=== PATIENT | female | born 1950 | race Caucasian/White ===

== ENCOUNTER 2018-10-05 21:51 | Emergency (ER) | payer OTHER, MEDICARE, SELFPAY ==
--- NOTE | 2018-10-05 21:55 | ED.ABDPAIN ---
HPI - Abdominal Pain General Chief Complaint: Chest Pain Stated Complaint: thinks she is having a galbladder attack Time Seen by Provider: 10/05/18 21:54 Source: patient Mode of arrival: ambulatory Limitations: no limitations History of Present Illness HPI narrative: Patient is a 68-year-old female here for evaluation of right upper quadrant abdominal pain. She states that it is radiating to the right side of her back. She is also having severe nausea. States it was a fairly sudden onset this afternoon. Does not seem to be associated with any other symptoms. She came in stating that she thought it was her gallbladder. No bowel changes. No symptoms. Has had a gastric banding in the past. Related Data Previous Rx's Medication Instructions Recorded acyclovir 400 mg tablet 400 mg PO TID #30 tab 01/22/18 escitalopram 10 mg tablet 10 mg PO HS #90 tab 07/01/18 levothyroxine 100 mcg tablet 100 mcg PO QAM #90 tab 07/01/18 liothyronine 5 mcg tablet 5 mcg PO QDAY #14 tab 07/31/18 oxycodone-acetaminophen [Percocet] 1 tab PO Q4-6H PRN #14 tab 10/06/18 promethazine 25 mg PO Q4-6H PRN #14 tab 10/06/18 Allergies Allergy/AdvReac Type Severity Reaction Status Date / Time clindamycin [CLINDAMYCIN] Allergy Intermediate FULL BODY Unverified 08/08/17 13:00 RASH morphine [MORPHINE] Allergy Mild severe Unverified 08/08/17 13:00 vomiting and nausea wheat [WHEAT] Allergy Unknown UNKNOWN Unverified 08/08/17 13:00 REACTION PER PT DIARY Allergy Intermediate SINUS Uncoded 08/08/17 13:00 DRAINAGE, GI UPSET Review of Systems Constitutional Denies fever(s) and Denies headache(s) ENT Ears, Nose, Mouth, and Throat: Denies headache(s) Cardiovascular Denies chest pain and Denies dyspnea Respiratory Denies dyspnea Gastrointestinal Gastrointestinal: Reports abdominal pain, Denies change in stool character, Reports nausea and Reports vomiting Genitourinary Denies dysuria Musculoskeletal Denies myalgias and Denies arthralgias Integumentary/Breasts Denies rash Neurologic Denies headache(s) Hematologic/Lymphatic Denies easy bleeding and Denies easy bruising Allergic/Immunologic Denies urticaria [facility] Medical History Excessive daytime sleepiness (Chronic) Insomnia, persistent (Chronic) Obstructive sleep apnea of adult (Chronic) Social History Smoking Status: Never smoker Social History Smoking Status: Never smoker Exam Initial Vital Signs Initial Vital Signs: Vital Signs Pulse Rate 72 10/05/18 21:57 Respiratory Rate 17 10/05/18 21:57 Blood Pressure 154/128 H 10/05/18 21:57 Pulse Oximetry 100 10/05/18 21:57 Const General: cooperative, No comfortable (Uncomfortable), well developed and well groomed Orientation: alert, awake and oriented x3 HENMT Head: normal to inspection and normocephalic Resp Effort & Inspection: normal respiratory effort Auscultation: clear to auscultation bilaterally Cardio Rate: regular rate Rhythm: regular rhythm GI Inspection: non-distended Palpation: tender (Right upper quadrant positive Pierson sign) Back/Spine/Pelvis Back: CVA tenderness right Skin Lesions: no lesions Rashes: no rashes Neuro General: alert and awake Cognition: normal cognition Speech: speech normal Extrem General: normal to inspection and capillary refill normal Psych Appearance: grossly normal and well kempt Course Orders Ordered: ED Orders 10/05/18 22:05 Complete Blood Count AUTO DIFF Stat Comprehensive Metabolic Panel Stat Lipase Stat Troponin & CK Cardiac Panel Stat EKG-12 Lead Stat 10/05/18 22:08 US abdomen limited Stat 10/05/18 22:56 Lactate (Lactic Acid) Stat 10/05/18 23:19 CT abdomen pelvis w con Stat Discontinued Medications Fentanyl (Sublimaze) 50 mcg IV NOW ONE Stop: 10/05/18 23:20 Last Admin: 10/06/18 00:14 Dose: 50 mcg Hydroxyzine HCl (Vistaril) 25 mg IM NOW ONE Stop: 10/05/18 22:23 Last Admin: 10/05/18 22:29 Dose: 25 mg Ketorolac Tromethamine (Toradol) 30 mg IV NOW ONE Stop: 10/06/18 02:00 Last Admin: 10/06/18 02:22 Dose: 30 mg Lorazepam (Ativan) 1 mg IV NOW ONE Stop: 10/06/18 00:31 Last Admin: 10/06/18 00:37 Dose: 1 mg Metoclopramide HCl (Reglan) 10 mg IV NOW ONE Stop: 10/05/18 22:12 Last Admin: 10/05/18 22:17 Dose: 10 mg Ondansetron HCl (Zofran) 4 mg IV NOW ONE Stop: 10/05/18 22:08 Last Admin: 10/06/18 01:04 Dose: Not Given Ondansetron HCl (Zofran Odt Prepack) 1 bottle MISC SEEINSTR ONE Stop: 10/06/18 02:51 Oxycodone/Acetaminophen (Percocet 5/325) 2 tab PO NOW ONE Stop: 10/06/18 02:03 Last Admin: 10/06/18 02:23 Dose: 2 tab Oxycodone/Acetaminophen (Endocet 5/325 Prepack) 1 bottle MISC SEEINSTR ONE Stop: 10/06/18 02:51 Vital Signs - 8 hr 10/05/18 21:57 10/05/18 22:25 10/05/18 22:52 Temperature 97.0 F L Pulse Rate 72 76 Respiratory Rate 17 16 Blood Pressure 154/128 H Blood Pressure [Right Arm] 145/97 H Pulse Oximetry 100 99 10/06/18 00:21 10/06/18 00:57 10/06/18 01:54 Temperature Pulse Rate 67 74 65 Respiratory Rate 18 12 14 Blood Pressure Blood Pressure [Right Arm] 150/75 H 143/71 H 123/61 Pulse Oximetry 97 97 MDM - Abdominal Pain Lab Data Attestation: I reviewed the patient's lab results. Result diagrams: 10/05/18 22:05 10/05/18 22:05 Lab Results 10/05/18 10/05/18 10/05/18 Range/Units 22:05 22:05 22:05 WBC 10.0 (4.5-11.0) X10^3/uL RBC 4.37 (4.0-5.2) X10^6/uL Hgb 14.6 (12.0-16.0) g/dL Hct 42.0 (36-46) % MCV 96.0 (80-100) fL MCH 33.4 (26-34) PG MCHC 34.7 (30-36) % RDW 13.7 (11.6-14.8) % Plt Count 271 (150-400) X10^3/uL Neut % (Auto) 47.1 L (50-75) % Lymph % (Auto) 44.0 H (25-40) % [place] % (Auto) 6.6 (3-14) % Eos % (Auto) 1.3 L (2-4) % Baso % (Auto) 1.0 (0-2) % Neut # (Auto) 4700 (5186-4609) /uL Lymph # (Auto) 4400 (0560-8286) /uL [place] # (Auto) 700 (0-900) /uL Eos # (Auto) 100 (0-450) /uL Baso # (Auto) 100 (0-100) /uL Sodium 140 (137-145) mmol/L Potassium 4.2 (3.4-5.1) mmol/L Chloride 102 (98-107) mmol/L Carbon Dioxide 29 (22-32) mmol/L BUN 22 H (7-17) mg/dL Creatinine 0.90 (0.52-1.04) mg/dL Estimated GFR > 60.0 (>60) mL/min BUN/Creatinine Ratio 24.4 H (6-22) Glucose 109 (80-110) mg/dL Lactate (0.7-2.1) mmol/L Calcium 9.7 (8.4-10.2) mg/dL Total Bilirubin 0.4 (0.2-1.3) mg/dL AST 38 H (14-36) IU/L ALT 28 (9-52) IU/L Alkaline Phosphatase 64 (38-126) U/L Total Creatine Kinase 95 (30-135) U/L CK-MB (CK-2) TNP CK-MB (CK-2) Rel Index TNP Troponin I < 0.012 (0.01-0.034) ng/mL Total Protein 7.9 (6.3-8.2) g/dL Albumin 4.5 (3.5-5.0) g/dL Globulin 3.4 (1.7-4.1) g/dL Albumin/Globulin Ratio 1.3 (1.0-2.8) Lipase 109 (23-300) U/L 10/05/18 Range/Units 22:56 WBC (4.5-11.0) X10^3/uL RBC (4.0-5.2) X10^6/uL Hgb (12.0-16.0) g/dL Hct (36-46) % MCV (80-100) fL MCH (26-34) PG MCHC (30-36) % RDW (11.6-14.8) % Plt Count (150-400) X10^3/uL Neut % (Auto) (50-75) % Lymph % (Auto) (25-40) % [place] % (Auto) (3-14) % Eos % (Auto) (2-4) % Baso % (Auto) (0-2) % Neut # (Auto) (6673-1194) /uL Lymph # (Auto) (2058-9303) /uL [place] # (Auto) (0-900) /uL Eos # (Auto) (0-450) /uL Baso # (Auto) (0-100) /uL Sodium (137-145) mmol/L Potassium (3.4-5.1) mmol/L Chloride (98-107) mmol/L Carbon Dioxide (22-32) mmol/L BUN (7-17) mg/dL Creatinine (0.52-1.04) mg/dL Estimated GFR (>60) mL/min BUN/Creatinine Ratio (6-22) Glucose (80-110) mg/dL Lactate 1.3 (0.7-2.1) mmol/L Calcium (8.4-10.2) mg/dL Total Bilirubin (0.2-1.3) mg/dL AST (14-36) IU/L ALT (9-52) IU/L Alkaline Phosphatase (38-126) U/L Total Creatine Kinase (30-135) U/L CK-MB (CK-2) CK-MB (CK-2) Rel Index Troponin I (0.01-0.034) ng/mL Total Protein (6.3-8.2) g/dL Albumin (3.5-5.0) g/dL Globulin (1.7-4.1) g/dL Albumin/Globulin Ratio (1.0-2.8) Lipase (23-300) U/L Imaging Data US - abdomen: Radiologist's impression: Distended gallbladder with cholelithiasis. Mild hepatomegaly. Patient stop the exam before images of the right kidney could be obtained. Common bile duct 7.9 mm. No gallbladder wall thickening. Distended gallbladder measuring [address] scan - abdomen: Radiologist's impression: Considerably distended gallbladder without other abnormalities. ECG Data Attestation: I personally reviewed and interpreted this ECG as follows: Prior ECG tracings: not available for review Interpretation: Atrial fibrillation Ventricular rate of 77 Left axis deviation Normal QRS Normal QTC No ST T wave changes MDM Narrative Medical decision making narrative: Had fairly difficult time getting the patient's symptoms under control here in the ER. She states that the only medication that works for her nausea is Phenergan which we do not have available in the emergency department due to pharmacy restrictions. She also has allergies to morphine. She states that morphine makes her severely nauseous and causes vomiting which she is currently doing. She thinks that Dilaudid also causes this. We were able to obtain some control of her symptoms through other medications. She was able to tolerate oral pain medications. Will send home with prescriptions for these. I do have a high suspicion that her symptoms are related to her gallbladder. The manometer technician reported that there was 1 non moveable gallstone in the neck of the gallbladder. Her CT scan of the abdomen shows no other pathology. I did discuss the case with Dr. Odell with General surgery who stated that given her history of gastric banding that treating this as an outpatient would be preferable to admitting her and taking her to surgery. We were able to do this. Patient was given the phone number to follow up with surgery as an outpatient. She was given return precautions. She expressed understanding and agreement with plan. Discharge Plan Departure Patient Disposition: Home Clinical Impression: Biliary colic Instructions: Gallstones (Alternative Therapy), Gallstones Activity Restrictions/Additional Instructions: Take the medications as directed. I do recommend that you avoid greasy and oily foods for now. This may decrease your chances of having a repeat issue. On Sunday contact the [place] [facility] office at [phone]. Also contact your primary care provider for a follow-up. Return to the emergency department for any new or worsening symptoms Prescriptions: New oxycodone-acetaminophen [Percocet] 5-325 mg tablet 1 tab PO Q4-6H PRN (Reason: pain) Qty: 14 RF: 0 promethazine 25 mg tablet 25 mg PO Q4-6H PRN (Reason: nausea and vomiting) Qty: 14 RF: 0 No Action acyclovir 400 mg tablet 400 mg PO TID Qty: 30 RF: 5 escitalopram oxalate [Lexapro] 10 mg tablet 10 mg PO HS Qty: 90 RF: 1 levothyroxine [Synthroid] 100 mcg tablet 100 mcg PO QAM Qty: 90 RF: 0 liothyronine [Cytomel] 5 mcg tablet 5 mcg PO QDAY Qty: 14 RF: 0 Referrals: Chaz Amezcua MD [Primary Care Provider] -
[2018-10-05 21:57] VITALS: BP 154/128; PULSE 72; RESP 17; O2SAT 100; BMI 34.9
--- NOTE | 2018-10-05 22:08 | DI.US.S_ITS ---
PROCEDURE: US ABDOMEN LIMITED INDICATIONS: RIGHT UPPER QUADRANT PAIN; NAUSEA, VOMITING TECHNIQUE: Real-time focused scanning was performed of the abdomen, with image documentation. COMPARISON: [facility], US, RENAL COMPLETE, 02/04/2016, 8:40. [facility], CT, ABDOMEN/PELVIS WITH CONTRAST, 12/27/2015, 0:51. [facility], CT, CT ABDOMEN PELVIS W CON, 10/06/2018, 0:33. FINDINGS: A non-mobile gallstone is seen within the gallbladder that measures 2.7 cm. Additional smaller mobile gallstones are seen that measure approximately 2 cm. The gallbladder is distended. The gall bladder wall is not thickened. No pericholecystic fluid is seen. There is a positive sonographic Pierson sign. The common hepatic duct is mildly prominent at 8 mm. Limit evaluation of the liver and pancreas are unremarkable. IMPRESSION: Gallstones with a positive sonographic Pierson's sign. No additional sonographic signs of cholecystitis are seen. Please correlate with physical examination findings, patient presentation, and laboratory values. Note: No significant discrepancy from the preliminary report. Dictated by: Gene Juarez M.D. on 10/06/2018 at 8:21 Approved by: Gene Juarez M.D. on 10/06/2018 at 8:24
[2018-10-05] MEDS: METOCLOPRAMIDE 10 MG/2 ML INJ IV (22:17)
[2018-10-05 22:21] LABS: Add Manual Diff / Slide Review NO; Alanine Aminotransferase 28 IU/L (9-52); Albumin 4.5 g/dL (3.5-5.0); Albumin Globulin Ratio 1.3 (1.0-2.8); Alkaline Phosphatase 64 U/L (38-126); Aspartate Aminotransferase 38 IU/L (14-36); BUN Creatinine Ratio 24.4 (6-22); Basophils Absolute Auto 100 /uL (0-100); Bilirubin Total 0.4 mg/dL (0.2-1.3); Blood Urea Nitrogen 22 mg/dL (7-17); Calcium 9.7 mg/dL (8.4-10.2); Carbon Dioxide 29 mmol/L (22-32); Chloride 102 mmol/L (98-107); Creatine Kinase 95 U/L (30-135); Eosinophils Absolute Auto 100 /uL (0-450); Eosinophils Percent Auto 1.3 % (2-4); Estimated Glomerular Filt Rate > 60.0 mL/min (>60); Globulin 3.4 g/dL (1.7-4.1); Glucose 109 mg/dL (80-110); HEMOLYSIS < 15 (0-50); Hemoglobin 14.6 g/dL (12.0-16.0); Lipase 109 U/L (23-300); Lymphocytes Absolute Auto 4400 /uL (1100-4500); Mean Corpuscular HGB Conc 34.7 % (30-36); Mean Corpuscular Hemoglobin 33.4 PG (26-34); Monocytes Absolute Auto 700 /uL (0-900); Monocytes Percent Auto 6.6 % (3-14); Neutrophils Absolute Auto 4700 /uL (1500-7000); Neutrophils Percent Auto 47.1 % (50-75); Platelet Count 271 X10^3/uL (150-400); Potassium 4.2 mmol/L (3.4-5.1); Red Blood Cell Count 4.37 X10^6/uL (4.0-5.2); Red Cell Distribution Width 13.7 % (11.6-14.8); Sodium 140 mmol/L (137-145); Total Protein 7.9 g/dL (6.3-8.2)
[2018-10-05 22:25] VITALS: BP 145/97; PULSE 76; RESP 16; O2SAT 99
[2018-10-05] MEDS: hydrOXYzine 50 MG/ML INJ 25 MG IM (22:29)
[2018-10-05 22:33] LABS: Troponin I < 0.012 ng/mL (0.01-0.034)
[2018-10-05 22:52] VITALS: TEMP 36.1
[2018-10-05 23:09] LABS: Lactate (Lactic Acid) 1.3 mmol/L (0.7-2.1)
--- NOTE | 2018-10-05 23:19 | DI.CT.S_ITS ---
PROCEDURE: CT ABDOMEN PELVIS W CON INDICATIONS: Right-sided abdominal pain TECHNIQUE: After the administration of intravenous contrast, 5 mm thick sections acquired from the diaphragm to the symphysis. 5 mm coronal and sagittal reformats were acquired. For radiation dose reduction, the following was used: automated exposure control, adjustment of mA and/or kV according to patient size. COMPARISON: [facility], US, US ABDOMEN LIMITED, 10/05/2018, 22:32. [facility], RG, CT ABDOMEN/PELVIS WITH CONTRAST, 08/26/2004, 14:02. [facility], CT, ABDOMEN/PELVIS WITH CONTRAST, 12/27/2015, 0:51. FINDINGS: Image quality: There is streak artifact associated with the metallic hardware. ABDOMEN: Lung bases: Lung bases are clear. Heart size is normal. A small hiatal hernia is incidentally noted. Solid organs: Liver is normal in size and enhancement. Incidental note is made of focal fatty infiltration adjacent to the falciform ligament, which is not regarded to be pathologic. The gallbladder is distended. There is a faintly seen stone within the midportion of the gallbladder. Biliary system is non dilated. Pancreas enhances normally. Spleen is normal in size and enhancement. No adrenal nodules. Kidneys demonstrate normal size and enhancement, without hydronephrosis. A simple appearing cyst measuring greater than 5 cm is again seen involving the right kidney. Peritoneum and bowel: There is a lap band seen. Bowel loops demonstrate normal wall thickness and caliber. No free fluid or air. Diverticulosis is seen, without findings of active diverticulitis. No appendix (either normal or abnormal) is identified on this study. Nodes and vessels: No retroperitoneal or mesenteric adenopathy by size criteria. Aorta and inferior vena cava are normal in size. Miscellaneous: No ventral hernias. PELVIS: Genitourinary: Bladder wall thickness is normal. Small presumed uterine fibroids are seen. Miscellaneous: No inguinal hernias or adenopathy. Bones: No suspicious bony lesions. No vertebral body compression fractures. There is a left hip arthroplasty seen, with associated streak artifact. Degenerative changes are seen throughout, which are most prominent at L5-S1. IMPRESSION: Distended gallbladder, with a faintly seen gallstone within its lumen. No biliary dilatation. No appendix can be seen, either normal or abnormal. Incidental note is made of: Small hiatal hernia Left hand Large simple right renal cyst Diverticulosis is seen, without findings of active diverticulitis. Small presumed uterine fibroids Focal L5-S1 degenerative change Left hip arthroplasty, with associated streak artifact Note: No significant discrepancy from the preliminary report. Dictated by: Gene Juarez M.D. on 10/06/2018 at 8:03 Approved by: Gene Juarez M.D. on 10/06/2018 at 8:08
[2018-10-06] MEDS: fentaNYL 100 MCG/2 ML INJ 50 MCG IV (00:14)
[2018-10-06 00:21] VITALS: BP 150/75; PULSE 67; RESP 18; O2SAT 97
--- NOTE | 2018-10-06 00:23 | PC.NURSE ---
Pt reports pain 8/10, unable to lie flat for CT. Pt agreed to try Fentanyl, pt medicated per order. Will monitor for effect.
[2018-10-06] MEDS: LORazepam 2 MG/ML INJ 1 MG IV (00:37)
--- NOTE | 2018-10-06 00:41 | PC.NURSE ---
After Fentanly, pt was able to lie flat for a moment, but then sat up reporting increasing pain and nausea. Pt stated she's unable to lie flat for CT scan. Dr Setphens notified, order receieved for 1 mg ativan IV. Med given, pt now to CT scan.
[2018-10-06 00:57] VITALS: BP 143/71; PULSE 74; RESP 12; O2SAT 97
[2018-10-06 01:54] VITALS: BP 123/61; PULSE 65; RESP 14
[2018-10-06] MEDS: KETOROLAC 60 MG/2 ML VIAL 30 MG IV (02:22)
[2018-10-06] MEDS: OXYCODONE/ACETAMINOPHEN 5/325 TABLET 2 TAB PO (02:23)
[2018-10-06] MEDS: OXYCODONE/APAP 5/325 PREPACK 1 BOTTLE MISC (03:33)
[2018-10-06] MEDS: ONDANSETRON 4 MG ODT PREPACK 1 BOTTLE MISC (03:33)
[2018-10-06 03:44] VITALS: BP 116/57; PULSE 70; RESP 13; TEMP 36.5; O2SAT 99
== END 2018-10-06 03:45 | disposition home or self-care (01) ==
PROVIDERS: Emergency Provider Emergency Medicine; Family Provider Family Medicine; PCP Family Medicine
DX: K80.50 Calculus of bile duct without cholangitis or cholecystitis without obstruction (principal); I48.91 Unspecified atrial fibrillation
CPT/HCPCS: 36591; 74177; 76705; 80053; 82550; 83605; 83690; 84484; 85025; 93005; 96372; 96374; 96375; 99283; 99285; J1885; J2060; J2765; J3010; J3410; Q9967

== ENCOUNTER → 2018-10-10 11:45 | Outpatient (CLI) | payer OTHER, MEDICARE, SELFPAY ==
[2018-10-10 12:11] LABS: Add Manual Diff / Slide Review NO; Basophils Absolute Auto 100 /uL (0-100); Eosinophils Absolute Auto 100 /uL (0-450); Eosinophils Percent Auto 1.7 % (2-4); Hematocrit 42.1 % (36-46); Hemoglobin 14.5 g/dL (12.0-16.0); Lymphocytes Absolute Auto 1700 /uL (1100-4500); Lymphocytes Percent Auto 35.1 % (25-40); Mean Corpuscular HGB Conc 34.5 % (30-36); Mean Corpuscular Hemoglobin 32.9 PG (26-34); Mean Corpuscular Volume 95.4 fL (80-100); Monocytes Absolute Auto 400 /uL (0-900); Neutrophils Absolute Auto 2600 /uL (1500-7000); Neutrophils Percent Auto 54.2 % (50-75); Platelet Count 239 X10^3/uL (150-400); Red Blood Cell Count 4.41 X10^6/uL (4.0-5.2); Red Cell Distribution Width 13.8 % (11.6-14.8); White Blood Cell Count 4.8 X10^3/uL (4.5-11.0)
[2018-10-10 12:45] LABS: Alanine Aminotransferase 36 IU/L (9-52); Albumin 4.3 g/dL (3.5-5.0); Albumin Globulin Ratio 1.4 (1.0-2.8); Alkaline Phosphatase 55 U/L (38-126); Aspartate Aminotransferase 37 IU/L (14-36); Bilirubin Total 0.6 mg/dL (0.2-1.3); Blood Urea Nitrogen 6 mg/dL (7-17); Calcium 9.8 mg/dL (8.4-10.2); Carbon Dioxide 29 mmol/L (22-32); Chloride 102 mmol/L (98-107); Estimated Glomerular Filt Rate > 60.0 mL/min (>60); Glucose 95 mg/dL (80-110); HEMOLYSIS < 15 (0-50); Potassium 4.8 mmol/L (3.4-5.1); Sodium 140 mmol/L (137-145); Total Protein 7.3 g/dL (6.3-8.2)
== END ==
PROVIDERS: Family Provider Family Medicine; PCP Family Medicine; Visit Provider Hospitalist
DX: K80.50 Calculus of bile duct without cholangitis or cholecystitis without obstruction (principal)
CPT/HCPCS: 36415; 80053; 85025

== ENCOUNTER → 2018-10-21 09:02 | Outpatient (CLI) | payer OTHER, MEDICARE, SELFPAY ==
--- NOTE | 2018-10-21 09:06 | DI.RAD.S_ITS ---
PROCEDURE: FL UPPER GI W AIR INDICATIONS: History Lap Band with vomiting COMPARISON: None. 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 Note is made of a gastric lap band device and catheter, and control device at the right upper abdomen and midline of the esophagogastric region. No suspicious abdominal calcifications. Visualized solid organ contours appear normal. Bony structures appear unremarkable. Esophagus: Esophageal mucosa is normal on air-contrast views. On single-contrast views, there is normal esophageal peristalsis. No strictures, extrinsic mass effects, or diverticula. No hiatal hernia or elicited gastroesophageal reflux. There is normal transit of a calibrated barium tablet through the esophagus. Stomach: The stomach is normally distensible, with normal rugal fold thickness. No mucosal masses or ulcers. Pylorus and duodenal bulb appear normal in morphology. Duodenal folds are normal in thickness as well. IMPRESSION: Gastric lap band procedure has been performed, control device and catheter and midline upper esophagogastric region device in expected positions. The examination shows no evidence of reflux, hiatal hernia, or esophagitis. No gastric mass or ulceration is seen. The duodenum appears normal. Dictated by: Kamran Beltran M.D. on 10/21/2018 at 10:07 Approved by: Kamran Beltran M.D. on 10/21/2018 at 10:08
== END ==
PROVIDERS: Family Provider Family Medicine; PCP Family Medicine; Visit Provider Surgery
DX: R11.10 Vomiting, unspecified (principal); Z98.84 Bariatric surgery status
CPT/HCPCS: 74247

== ENCOUNTER → 2018-11-05 12:54 | Outpatient (CLI) | payer OTHER, MEDICARE, SELFPAY ==
[2018-11-05 13:31] LABS: Hematocrit 40.6 % (36-46); Hemoglobin 13.9 g/dL (12.0-16.0); Mean Corpuscular HGB Conc 34.2 % (30-36); Mean Corpuscular Hemoglobin 32.9 PG (26-34); Red Blood Cell Count 4.23 X10^6/uL (4.0-5.2); White Blood Cell Count 6.7 X10^3/uL (4.5-11.0)
[2018-11-05 13:51] LABS: Platelet Count 224 X10^3/uL (150-400)
[2018-11-05 13:54] LABS: Neutrophils Absolute Manual 3551 /uL (3000-5900); Total Cells Counted 100
[2018-11-05 13:55] LABS: RBC Morphology Normal Morphology
[2018-11-05 14:27] LABS: Alanine Aminotransferase 37 IU/L (9-52); Albumin 4.3 g/dL (3.5-5.0); Albumin Globulin Ratio 1.5 (1.0-2.8); Alkaline Phosphatase 51 U/L (38-126); Aspartate Aminotransferase 38 IU/L (14-36); BUN Creatinine Ratio 31.7 (6-22); Bilirubin Total 0.6 mg/dL (0.2-1.3); Blood Urea Nitrogen 19 mg/dL (7-17); Calcium 9.8 mg/dL (8.4-10.2); Carbon Dioxide 26 mmol/L (22-32); Chloride 106 mmol/L (98-107); Estimated Glomerular Filt Rate > 60.0 mL/min (>60); Globulin 2.9 g/dL (1.7-4.1); Glucose 95 mg/dL (80-110); HEMOLYSIS 27 (0-50); Potassium 4.5 mmol/L (3.4-5.1); Sodium 141 mmol/L (137-145); Total Protein 7.2 g/dL (6.3-8.2)
[2018-11-05 14:58] LABS: TSH w/ Reflex to FT4 5.14 uIU/mL (0.47-4.68)
[2018-11-05 15:53] LABS: Free T4, Direct Thyroxine 0.56 ng/dL (0.78-2.19)
== END ==
PROVIDERS: PCP Family Medicine; Visit Provider Family Medicine
DX: I48.91 Unspecified atrial fibrillation (principal)
CPT/HCPCS: 36415; 80053; 84439; 84443; 85025

== ENCOUNTER → 2018-11-12 12:26 | Outpatient (CLI) | payer OTHER, MEDICARE, SELFPAY ==
--- NOTE | 2018-11-12 12:29 | DI.MG.S_ITS ---
BILATERAL DIGITAL SCREENING MAMMOGRAM 3D/2D WITH CAD: 11/12/2018 CLINICAL: Routine screening. Family history of breast cancer. Baseline by default. No prior exams were available for comparison. There are scattered fibroglandular elements in both breasts. Current study was also evaluated with a Computer Aided Detection (CAD) system. There are mole markers on both breasts. No significant masses, calcifications, or other findings are seen in either breast. IMPRESSION: NEGATIVE There is no mammographic evidence of malignancy. A 1 year screening mammogram is recommended. This exam was interpreted at Station ID: [id number]. NOTE: For mammograms, a report in lay terms will be sent to the patient. Approximately 15% of breast malignancies will not be visualized mammographically. In the management of a palpable breast mass, a negative mammogram must not discourage biopsy of a clinically suspicious lesion. Electronically Signed By: Kelvin Reyez M.D. ecl/:11/12/2018 19:43:52 letter sent: Normal Exam ACR BI-RADS Category 1: Negative [id number]
== END ==
PROVIDERS: PCP Family Medicine; Visit Provider Family Medicine
DX: Z12.31 Encounter for screening mammogram for malignant neoplasm of breast (principal); Z80.3 Family history of malignant neoplasm of breast
CPT/HCPCS: 77063; 77067

== ENCOUNTER → 2018-11-13 11:02 | Outpatient (CLI) | payer OTHER, MEDICARE, SELFPAY ==
--- NOTE | 2018-11-29 16:08 | P.HOLT.S_ITS ---
[employer] Report Referral & Results Date Patient Seen: 11/13/18 Requesting provider: Chaz Amezcua Indication: Atrial fibrillation Duration of monitoring (days): 6 Diary information: There were no patient diary entries There were 10 patient triggered events associated sinus rhythm and PACs Data: Minimum are identified was 40 beats per minute at 08:37 on 11/20/2018 Met from sinus heart rate was 120 beats per minute at 14:26 05/06/2018 Maximum overall heart rate is 169 beats per minute at 14:48 on 11/19/2018 associated with a 5 beat run of SVT/atrial tachycardia Less than 1% of identified beats were PVCs Approximately 1.4% of identified beats were PACs No episodes of atrial fibrillation identified 111 runs of supraventricular tachycardia or potentially atrial tachycardia her identified. The longest was 51 seconds in duration with a heart rate of 112 beats per minute (the suggesting atrial tachycardia versus true SVT) Impression: No atrial fibrillation identified Supraventricular dysrhythmia as above
== END ==
PROVIDERS: PCP Family Medicine; Visit Provider Family Medicine
DX: I48.91 Unspecified atrial fibrillation (principal)
CPT/HCPCS: 0296T; 0298T

== ENCOUNTER → 2018-11-18 13:45 | Outpatient (CLI) | payer OTHER, MEDICARE, SELFPAY ==
--- NOTE | 2018-11-18 13:47 | DI.ECHO.S_ITS ---
[facility] +---------+ : : [address] : : : : [id number] : : : : Phone: [phone] Echocardiogram Report + + :Name: LG CRENSHAW Study Date: 11/18/2018 Height: 64 in : :[facility] Exam Location: IS Weight: 200 lb : : Gender: Female BSA: 2.0 m2 : :: 1950 Age: 68 yrs BP: 112/70 mmHg: :Reason For Study: AFIB : : Performed By: Zana Antunez : :Referring: ANA JOHNSON : + + Interpretation Summary Normal left ventricle size with ejection fraction 60-65%. Mildly dilated left atrium. Mild aortic valve sclerosis. Mild aortic regurgitation. Mildly enlarged ascending aorta. Procedure: A two-dimensional transthoracic echocardiogram with color flow and Doppler was performed. The study quality was technically good. There is no prior echocardiogram noted for this patient. The patient was in normal sinus rhythm during the exam. Left Ventricle: The left ventricle is normal in size. There is normal left ventricular wall thickness. The ejection fraction is estimated to be 60-65%. There are no focal wall motion abnormalities. Diastolic parameters suggest probable normal left ventricular diastolic function and normal filling pressures. Right Ventricle: The right ventricle is normal in size and function. Atria: The left atrium is mildly dilated. Right atrial size is normal. The interatrial septum is intact with no evidence for an atrial septal defect. Mitral Valve: The mitral valve is normal in structure and function. There is trace mitral regurgitation. Aortic Valve: The aortic valve is trileaflet. The aortic valve opens well. There is mild aortic valve sclerosis. There is mild aortic regurgitation. Tricuspid Valve: The tricuspid valve is normal in structure and function. There is trace tricuspid regurgitation. The right ventricular systolic pressure is estimated to be at least 20 mmHg based on an estimated right atrial pressure of 3 mm Hg. Pulmonic Valve: The pulmonic valve is normal in structure and function. There is trace pulmonic regurgitation. Great Vessels: The aortic root is normal size. The ascending aorta is mildly enlarged. The pulmonary artery is normal size. The IVC is of normal diameter and collapses greater than 50% with a sniff. This suggests a low right atrial pressure of 3 mm Hg. Pericardium/ Pleura There is no pericardial effusion. There is no pleural effusion. MMode/2D Measurements & Calculations LVIDd: 4.5 cm LVOT diam: 2.0 cm LVIDs: 2.4 cm Ao root diam: 3.1 cm FS: 46.8 % Aortic Jxn: 2.4 cm EPSS: 0.16 cm asc Aorta Diam: 3.7 cm IVSd: 0.98 cm Ao Arch Diam (Prox Trans): 3.0 cm LVPWd: 1.00 cm LV lazo. diameter/BSA (cm/m^2): 2.3 LV sys. diameter/BSA (cm/m^2): 1.2 LA dimension: 3.4 cm RA long axis: 5.0 cm LA A2 area: 25.0 cm2 RA area: 16.8 cm2 LA A4 area: 20.2 cm2 RA vol: 47.8 ml LA length (vol): 5.8 cm RA : 24.4 ml/m2 LA vol: 73.4 ml IVC diam: 1.2 cm LA vol index: 37.5 ml/m2 Doppler Measurements & Calculations Ao V2 max: 139.8 cm/sec LVOT Max Nitin: 126.0 cm/sec Ao V2 mean: 101.8 cm/sec LV V1 max P.3 mmHg Ao max P.8 mmHg LV V1 VTI: 32.9 cm Ao mean P.3 mmHg CARRIE(I,D): 3.3 cm2 Ao V2 VTI: 29.9 cm CARRIE(V,D): 2.7 cm2 sev ratio: 1.1 CARRIE indexed to BSA (cm^2/m^2): 1.7 MV E max nitin: 90.1 cm/sec TR max nitin: 204.9 cm/sec MV A max nitin: 65.4 cm/sec TR max P.8 mmHg MV E/A: 1.4 PA V2 max: 86.8 cm/sec Med Peak E' Nitin: 7.1 cm/sec PA V2 mean: 61.9 cm/sec E/E' med: 12.6 PA mean P.7 mmHg Lat Peak E' Nitin: 7.3 cm/sec PA pr(Accel): 9.1 mmHg E/E' lat: 12.3 PA Accel Time: 0.15 sec E/e' average: 12.5 MV dec time: 0.23 sec SV(LVOT): 100.0 ml Electronically signed by: Sabrina Shah on Reading Physician:11/18/2018 03:07 PM
== END ==
PROVIDERS: PCP Family Medicine; Visit Provider Family Medicine
DX: I48.91 Unspecified atrial fibrillation (principal); I35.8 Other nonrheumatic aortic valve disorders; I35.1 Nonrheumatic aortic (valve) insufficiency; Q25.40 Congenital malformation of aorta unspecified
CPT/HCPCS: 93306

== ENCOUNTER → 2019-02-26 09:20 | Outpatient (CLI) | payer OTHER, MEDICARE, SELFPAY | PROVIDERS: PCP Family Medicine; Visit Provider Family Medicine | DX: E03.9 Hypothyroidism, unspecified (principal) | CPT/HCPCS: 36415; 84443 ==

== ENCOUNTER → 2019-05-17 09:35 | Outpatient (CLI) | payer OTHER, MEDICARE, SELFPAY ==
[2019-05-17 11:03] LABS: Add Manual Diff / Slide Review NO; Basophils Absolute Auto 0 /uL (0-100); Basophils Percent Auto 0.7 % (0-2); Eosinophils Absolute Auto 100 /uL (0-450); Eosinophils Percent Auto 2.4 % (2-4); Hematocrit 41.4 % (36-46); Hemoglobin 14.1 g/dL (12.0-16.0); Lymphocytes Absolute Auto 1800 /uL (1100-4500); Lymphocytes Percent Auto 34.3 % (25-40); Mean Corpuscular HGB Conc 34.1 % (30-36); Mean Corpuscular Hemoglobin 33.5 PG (26-34); Mean Corpuscular Volume 98.1 fL (80-100); Monocytes Absolute Auto 400 /uL (0-900); Monocytes Percent Auto 7.5 % (3-14); Neutrophils Absolute Auto 2900 /uL (1500-7000); Neutrophils Percent Auto 55.1 % (50-75); Platelet Count 246 X10^3/uL (150-400); Red Blood Cell Count 4.22 X10^6/uL (4.0-5.2); White Blood Cell Count 5.3 X10^3/uL (4.5-11.0)
[2019-05-17 11:20] LABS: Alanine Aminotransferase 20 IU/L (<35); Albumin 4.5 g/dL (3.5-5.0); Albumin Globulin Ratio 1.3 (1.0-2.8); Alkaline Phosphatase 53 U/L (38-126); Aspartate Aminotransferase 33 IU/L (14-36); BUN Creatinine Ratio 27.1 (6-22); Bilirubin Total 0.7 mg/dL (0.2-1.3); Blood Urea Nitrogen 19 mg/dL (7-17); Calcium 9.7 mg/dL (8.4-10.2); Carbon Dioxide 32 mmol/L (22-32); Chloride 101 mmol/L (98-107); Cholesterol 289 mg/dL (140-199); Estimated Glomerular Filt Rate > 60.0 mL/min (>60); Globulin 3.6 g/dL (1.7-4.1); Glucose 85 mg/dL (80-110); HDL Cholesterol 52 mg/dL (40-60); HEMOLYSIS < 15 (0-50); LDL Cholesterol Calculated 221 mg/dL (<100); Potassium 4.2 mmol/L (3.4-5.1); Sodium 141 mmol/L (137-145); Total Protein 8.1 g/dL (6.3-8.2); Triglycerides 79 mg/dL (35-150); VLDL Cholesterol Calculated 16 mg/dL (2-30)
[2019-05-17 11:39] LABS: Free T3, Triiodothyronine Free 2.24 pg/mL (2.77-5.27); T4 Total Thyroxine 8.86 ug/dL (5.5-11.0)
[2019-05-17 12:26] LABS: Folate > 20.0 ng/mL (2.76-20.0); Vitamin B12 684 pg/mL (239-931)
[2019-05-20 14:32] LABS: Thyroid Peroxidase Antibodies 186 IU/mL (< 9)
== END ==
PROVIDERS: PCP Family Medicine; Visit Provider Family Medicine
DX: D51.8 Other vitamin B12 deficiency anemias (principal); E03.4 Atrophy of thyroid (acquired); E03.9 Hypothyroidism, unspecified; E34.9 Endocrine disorder, unspecified; E55.9 Vitamin D deficiency, unspecified; R53.82 Chronic fatigue, unspecified; Z79.890 Hormone replacement therapy
CPT/HCPCS: 36415; 80053; 80061; 82607; 82672; 82746; 83001; 84402; 84403; 84436; 84443; 84481; 85025; 86376

== ENCOUNTER → 2019-05-29 11:54 | Outpatient (CLI) | payer OTHER, MEDICARE, SELFPAY ==
[2019-06-03 09:50] LABS: Testosterone Free 14.5 pg/mL (0.1-6.4); Testosterone Total 214 ng/dL (2-45)
[2019-06-04 19:16] LABS: Estradiol 41 pg/mL
== END ==
PROVIDERS: PCP Family Medicine; Visit Provider Family Medicine
DX: E03.9 Hypothyroidism, unspecified (principal); I49.9 Cardiac arrhythmia, unspecified; R55 Syncope and collapse
CPT/HCPCS: 82670; 82672; 84402; 84403

== ENCOUNTER → 2019-11-20 08:26 | Outpatient (CLI) | payer OTHER, MEDICARE, SELFPAY ==
[2019-11-20 10:46] LABS: Free T4, Direct Thyroxine 1.16 ng/dL (0.78-2.19)
[2019-11-20 11:00] LABS: Thyroid Stimulating Hormone 0.368 uIU/mL (0.47-4.68)
[2019-11-21 06:13] LABS: Thyroid Peroxidase Antibodies 110 IU/mL (0-34)
== END ==
PROVIDERS: PCP Family Medicine; Referring Provider Family Medicine; Visit Provider Family Medicine
DX: E03.9 Hypothyroidism, unspecified (principal)
CPT/HCPCS: 36415; 84439; 84443; 86376

== ENCOUNTER → 2020-02-21 08:57 | Outpatient (CLI) | payer OTHER, MEDICARE, SELFPAY ==
[2020-02-23 02:11] LABS: COVID19 Sendout Not Detected (Not Detect)
== END ==
PROVIDERS: PCP Family Medicine; Visit Provider Student in an Organized Health Care Education/Training Program
DX: Z11.59 Encounter for screening for other viral diseases (principal)
CPT/HCPCS: 87635

== ENCOUNTER → 2020-03-05 13:30 | Outpatient (CLI) | payer OTHER, MEDICARE, SELFPAY | PROVIDERS: PCP Family Medicine; Referring Provider Surgery; Visit Provider Surgery | DX: Z01.810 Encounter for preprocedural cardiovascular examination (principal) | CPT/HCPCS: 93005 ==

== ENCOUNTER → 2020-03-06 07:52 | Outpatient (CLI) | payer OTHER, MEDICARE, SELFPAY ==
[2020-03-06 09:42] LABS: Add Manual Diff / Slide Review NO; Basophils Absolute Auto 0 /uL (0-100); Basophils Percent Auto 0.9 % (0-2); Eosinophils Absolute Auto 100 /uL (0-450); Eosinophils Percent Auto 2.2 % (2-4); Hematocrit 41.8 % (36-46); Hemoglobin 14.2 g/dL (12.0-16.0); Lymphocytes Absolute Auto 2100 /uL (1100-4500); Lymphocytes Percent Auto 37.3 % (25-40); Mean Corpuscular HGB Conc 33.9 % (30-36); Mean Corpuscular Hemoglobin 32.7 PG (26-34); Mean Corpuscular Volume 96.4 fL (80-100); Monocytes Absolute Auto 400 /uL (0-900); Neutrophils Absolute Auto 2900 /uL (1500-7000); Neutrophils Percent Auto 51.6 % (50-75); Platelet Count 260 X10^3/uL (150-400); Red Blood Cell Count 4.33 X10^6/uL (4.0-5.2); Red Cell Distribution Width 13.1 % (11.6-14.8); White Blood Cell Count 5.6 X10^3/uL (4.5-11.0)
[2020-03-06 09:45] LABS: Hemoglobin A1C% w Est Avg Glu 5.7 % (4.0-6.0)
[2020-03-06 09:50] LABS: INR 0.9 (0.9-1.3); Prothrombin Time 10.2 SECONDS (10.1-12.7)
[2020-03-06 09:53] LABS: PTT Partial Thromboplastin Tim 23 SECONDS (26.4-36.2)
[2020-03-06 10:10] LABS: Alanine Aminotransferase 18 IU/L (<35); Albumin 4.3 g/dL (3.5-5.0); Albumin Globulin Ratio 1.3 (1.0-2.8); Alkaline Phosphatase 50 U/L (38-126); Aspartate Aminotransferase 27 IU/L (14-36); Bilirubin Total 0.3 mg/dL (0.2-1.3); Blood Urea Nitrogen 24 mg/dL (7-17); Calcium 9.1 mg/dL (8.4-10.2); Carbon Dioxide 30 mmol/L (22-32); Chloride 106 mmol/L (98-107); Cholesterol 241 mg/dL (140-199); Estimated Glomerular Filt Rate > 60.0 mL/min (>60); Globulin 3.4 g/dL (1.7-4.1); Glucose 104 mg/dL (80-110); HDL Cholesterol 48 mg/dL (40-60); HEMOLYSIS < 15 (0-50); LDL Cholesterol Calculated 176 mg/dL (<100); Potassium 4.2 mmol/L (3.4-5.1); Sodium 140 mmol/L (137-145); Total Protein 7.7 g/dL (6.3-8.2); Triglycerides 84 mg/dL (35-150)
[2020-03-06 10:18] LABS: Total Iron Binding Capacity 309 ug/dL (265-497)
[2020-03-06 10:28] LABS: Free T3, Triiodothyronine Free 3.44 pg/mL (2.77-5.27)
[2020-03-06 10:42] LABS: Thyroid Stimulating Hormone 0.228 uIU/mL (0.47-4.68)
[2020-03-06 10:46] LABS: Ferritin 105 ng/mL (11-264)
[2020-03-06 11:16] LABS: Folate 8.2 ng/mL (2.76-20.0); Vitamin B12 615 pg/mL (239-931)
[2020-03-06 13:15] LABS: Vitamin D 25 Hydroxy (D3) 81.5 ng/mL (30.0-100.0)
[2020-03-06 13:47] LABS: Iron 65 ug/dL (37-170)
[2020-03-09 09:10] LABS: Vitamin B1 123.1 nmol/L (66.5-200.0)
== END ==
PROVIDERS: PCP Family Medicine; Referring Provider Surgery; Visit Provider Surgery
DX: Z01.812 Encounter for preprocedural laboratory examination (principal); E63.9 Nutritional deficiency, unspecified; E55.9 Vitamin D deficiency, unspecified; E46 Unspecified protein-calorie malnutrition
CPT/HCPCS: 36415; 80053; 80061; 82306; 82607; 82728; 82746; 83036; 83540; 83550; 84425; 84443; 84481; 85025; 85610; 85730

== ENCOUNTER 2020-05-25 13:10 | Emergency (ER) | payer OTHER, MEDICARE, SELFPAY ==
[2020-05-25] VITALS (11 sets, daily range): BP systolic 130–159; BP diastolic 67–88; PULSE 65–80; RESP 15–24; TEMP 37; O2SAT 92–98; BMI 37.9
--- NOTE | 2020-05-25 13:20 | ED_ITS ---
HPI - Arrhythmia/Palpitations <LEXA Ferrari - Last Filed: 05/25/20 17:21> General Chief Complaint: Chest Pain Stated Complaint: AFIB Symptoms Time Seen by Provider: 05/25/20 13:20 Source: patient and family Mode of arrival: Ambulatory Limitations: no limitations History of Present Illness HPI narrative: This is a 69-year-old female, nonsmoker, who has past medical history significant for hypothyroidism and cholelithiasis and Lap banding presents to ED with chief complain of afib sensation and describes as mild dizziness, dyspnea stating needed to take several deep breaths to to catch breath, mild tingling sensation in her fingers and mild nausea while she was riding in a car to see her surgeon in [place] for preop appointment for cholecystectomy which lasted for about 1-1/2 hour onset at 9 this a.m.. She had a brief history of AFib when her thyroid hormone was abnormal. Patient denies palpitations, chest pain, syncope, cold sweats with this. She denies history of blood clots, DVT, PE. Her surgeon recommended her to be evaluated for cardiac for her symptoms and preop study. She had taken on aspirin and drove to [facility] urgent care clinic and had EKG done and suggested work up done and decided to drive to [facility] near home for the cardiac work up done. Patient has similar symptoms and her thyroid common was off in the past. She had couple of episodes similar symptoms with mild short of breath last week which was very brief. Patient came with EKG that was taken at Urgent Care shows sinus rhythm rate at [address] changes. Related Data Home Medications Medication Instructions Recorded Confirmed Resmed Airsense 10 CPAP #1 ea 10/28/18 05/05/20 Previous Rx's Medication Instructions Recorded levothyroxine 125 mcg tablet 125 mcg PO DAILY #90 tab 11/20/19 Allergies Allergy/AdvReac Type Severity Reaction Status Date / Time clindamycin [CLINDAMYCIN] Allergy Intermediate FULL BODY Verified 05/25/20 13:20 RASH morphine [MORPHINE] Allergy Mild severe Verified 05/25/20 13:20 vomiting and nausea wheat [WHEAT] Allergy Unknown UNKNOWN Verified 05/25/20 13:20 REACTION PER PT milk AdvReac Verified 05/25/20 13:22 Review of Systems <LEXA Ferrari - Last Filed: 05/25/20 17:21> Review of Systems Narrative: General: Denies fever, chills, fatigue, malaise, sweats. HEENT: Denies sinus pain, ear pain, sore throat, difficulty swallowing, dizziness. Respiratory: See HPI Cardiovascular: See HPI Gastrointestinal: HPI : Denies dysuria, frequency, incontinence, hematuria, urinary retention. Musculoskeletal: Denies weakness, joint pain or bony pain. Skin: Denies rash, skin lesions, or other. Neurologic: Denies weakness, headache, numbness, change in speech, confusion, seizures, incoordination. Psychiatric: No concerning psychosocial issues. 12-point review of systems is negative except for those stated above. Patient History <LEXA Ferrari - Last Filed: 05/25/20 17:21> Medical History Acquired hypothyroidism Afib Anxiety Arthritis Depression Eczema Excessive daytime sleepiness Dontae's disease HLD (hyperlipidemia) HTN (hypertension) Insomnia, persistent Obstructive sleep apnea of adult Vomiting Surgical History History of surgery (~2002) History of total hip replacement Hx of appendectomy (~1999) Hx of bariatric surgery (2005) Hx of oral surgery (~1986) Family History Mother Hypertension Gallstones Stroke Father Hypertension Heart disease Sister Gallstones Breast cancer Social History marital status: Smoking Status: Never smoker alcohol intake: current substance use type: does not use Smoking Status: Never smoker alcohol intake frequency: 0-2 drinks per day Substance Use Type: marijuana Exam <LEXA Ferrari - Last Filed: 05/25/20 17:21> Narrative Exam Narrative: GEN: Alert, oriented x 3, well appearing and nourished, and in no acute distress. Head: Normal cephalic, atraumatic. No scalp or temporal tenderness, palpable mass or rash. EYES: Pupils are equal, round, and reactive to light and accommodation. Extraocular muscles are intact bilaterally. There is no subconjunctival hemorrhage, exudate and sclera non-icteric. ENT: Hearing grossly intact. Airway patent. Neck: Trachea in midline. No JVD, non-tender without lymphadenopathy. No masses or thyroid megaly. Supple, non-tender and no meningeal signs. CARDIAC: Normal regular rate and rhythm without murmurs, gallops, or rubs. No chest wall tenderness. No peripheral edema, cyanosis or pallor. Capillary refill is less than 2 seconds. RESPIRATORY: Lungs are clear to auscultate bilaterally. No cough, wheezes, rales, or rhonchi. No stridor, respiratory distress, increase work of breathing, or accessary muscle used. ABD: Abdomen soft, nontender and non-distended. No guarding or rebound tenderness to palpate. Bowel sounds are normal in all 4 quadrants. There is no palpable masses or organomegaly. EXT: Full painless ROM of all extremities with no loss of sensation, strength, effusion or edema. SKIN: Warm, dry, normal color for patient. No erythema, lesions or rash over visible areas. BACK: Nontender without deformity or crepitance. No flank tenderness. NEUROLOGICAL: Alert and oriented to place, time and person. Sensation and motor function intact bilaterally. No facial droops, dysphasia. PSYCHIATRIC: Good judgement and reason, without hallucinations, abnormal affect or abnormal behaviors during the examination. Patient is not suicidal. Initial Vital Signs Initial Vital Signs: Vital Signs Pulse Rate 74 05/25/20 13:18 Respiratory Rate 24 05/25/20 13:18 Blood Pressure 142/72 H 05/25/20 13:18 Pulse Oximetry 97 05/25/20 13:18 <Zulma Spence DO - Last Filed: 05/28/20 13:47> Initial Vital Signs Initial Vital Signs: Vital Signs Pulse Rate 74 05/25/20 13:18 Respiratory Rate 24 05/25/20 13:18 Blood Pressure 142/72 H 05/25/20 13:18 Pulse Oximetry 97 05/25/20 13:18 Scores <LEXA Ferrari - Last Filed: 05/25/20 17:21> GCS Lissette coma scale eye opening: Spontaneous [place] coma scale verbal response: Orientated [place] coma scale motor response: Obey commands Lissette coma scale total score: 15 HEART Score Heart Score history: Slightly Suspicious Heart Score EKG: Normal Heart Score Age: > or = 65 years old Heart Score risk factors: No known risk factors Heart Score troponin: < or = to normal limit Heart Score Total: 2 Wells' Criteria for PE Clinical signs and symptoms of DVT: No PE is #1 Dx or equally likely: No Heart rate > 100: No Immobilization at least 3 days or surg in previous 4 weeks: No History of PE or DVT: No Hemoptysis: No Malignancy w/Treatment within 6 months or palliative: No Wells' PE Score total: 0 Course <LEXA Ferrari - Last Filed: 05/25/20 17:21> Orders Ordered: Discontinued Medications Sodium Chloride (Normal Saline 0.9%) 1,000 mls @ 125 mls/hr IV CONT CHRISSIE Last Infusion: 05/25/20 17:11 Dose: 0 mls/hr Documented by: Infusion: 05/25/20 17:11 Dose: 0 mls/hr Documented by: Admin: 05/25/20 14:35 Dose: 125 mls/hr Documented by: JAVY Reevaluation(s) Reevaluation #1: Discussed lab results from 1st blood test including cardiac enzyme with patient and informed will check 2nd cardiac enzymes in shortly. Patient is not in acute distress and doing well at this. Time: 15:40 Vital Signs Vital signs: Vital Signs - 8 hr 05/25/20 13:18 05/25/20 13:22 05/25/20 13:30 Temperature 98.6 F Pulse Rate 74 78 78 Respiratory Rate 24 18 17 Blood Pressure 142/72 H 142/72 H Pulse Oximetry 97 98 96 05/25/20 14:00 05/25/20 14:34 05/25/20 15:00 Temperature Pulse Rate 80 67 67 Respiratory Rate 23 15 Blood Pressure Pulse Oximetry 95 93 95 05/25/20 15:30 05/25/20 15:33 05/25/20 16:00 Temperature Pulse Rate 69 70 65 Respiratory Rate 16 18 24 Blood Pressure 130/81 143/67 H Pulse Oximetry 92 95 94 05/25/20 16:30 Temperature Pulse Rate 67 Respiratory Rate 16 Blood Pressure Pulse Oximetry 97 <Zulma Spence DO - Last Filed: 05/28/20 13:47> Orders Ordered: Discontinued Medications Sodium Chloride (Normal Saline 0.9%) 1,000 mls @ 125 mls/hr IV CONT CHRISSIE Last Infusion: 05/25/20 17:11 Dose: 0 mls/hr Documented by: Infusion: 05/25/20 17:11 Dose: 0 mls/hr Documented by: Admin: 05/25/20 14:35 Dose: 125 mls/hr Documented by: JAVY Vital Signs Vital signs: Vital Signs - 8 hr 05/25/20 13:18 05/25/20 13:22 05/25/20 13:30 Temperature 98.6 F Pulse Rate 74 78 78 Respiratory Rate 24 18 17 Blood Pressure 142/72 H 142/72 H Pulse Oximetry 97 98 96 05/25/20 14:00 05/25/20 14:34 05/25/20 15:00 Temperature Pulse Rate 80 67 67 Respiratory Rate 23 15 Blood Pressure Pulse Oximetry 95 93 95 05/25/20 15:30 05/25/20 15:33 05/25/20 16:00 Temperature Pulse Rate 69 70 65 Respiratory Rate 16 18 24 Blood Pressure 130/81 143/67 H Pulse Oximetry 92 95 94 05/25/20 16:30 Temperature Pulse Rate 67 Respiratory Rate 16 Blood Pressure Pulse Oximetry 97 MDM - Arrhythmia/Palpitations <LEXA Ferrari - Last Filed: 05/25/20 17:21> Differential Diagnosis Differential diagnosis: Likely anxiety, artial fibrillation and other (ACS, hyperthyroidism) Medical Records Attestation: I reviewed the patient's medical records. Lab Data Attestation: I reviewed the patient's lab results. Result diagrams: 05/25/20 13:20 05/25/20 13:20 Labs: Lab Results 05/25/20 05/25/20 05/25/20 Range/Units 13:20 13:20 13:20 WBC 8.5 (4.5-11.0) X10^3/uL RBC 4.64 (4.0-5.2) X10^6/uL Hgb 14.6 (12.0-16.0) g/dL Hct 44.3 (36-46) % MCV 95.5 (80-100) fL MCH 31.5 (26-34) PG MCHC 33.0 (30-36) % RDW 13.7 (11.6-14.8) % Plt Count 277 (150-400) X10^3/uL Neut % (Auto) 68.9 (50-75) % Lymph % (Auto) 24.8 L (25-40) % Williams % (Auto) 4.9 (3-14) % Eos % (Auto) 0.8 L (2-4) % Baso % (Auto) 0.6 (0-2) % Neut # (Auto) 5800 (3479-2035) /uL Lymph # (Auto) 2100 (0893-8604) /uL Williams # (Auto) 400 (0-900) /uL Eos # (Auto) 100 (0-450) /uL Baso # (Auto) 100 (0-100) /uL PT 11.8 (10.1-12.7) SECONDS INR 1.0 (0.9-1.3) APTT 34 D (26.4-36.2) SECONDS Sodium 136 L (137-145) mmol/L Potassium 4.8 (3.4-5.1) mmol/L Chloride 100 (98-107) mmol/L Carbon Dioxide 30 (22-32) mmol/L BUN 23 H (7-17) mg/dL Creatinine 0.73 (0.52-1.04) mg/dL Estimated GFR > 60.0 (>60) mL/min BUN/Creatinine Ratio 31.5 H (6-22) Glucose 119 H (80-110) mg/dL Calcium 9.7 (8.4-10.2) mg/dL Magnesium (1.6-2.3) mg/dL Total Bilirubin 0.5 (0.2-1.3) mg/dL AST 31 (14-36) IU/L ALT 22 (<35) IU/L Alkaline Phosphatase 63 (38-126) U/L Total Creatine Kinase 63 (30-135) U/L CK-MB (CK-2) TNP CK-MB (CK-2) Rel Index TNP Troponin I < 0.012 (0.01-0.034) ng/mL Total Protein 8.1 (6.3-8.2) g/dL Albumin 4.5 (3.5-5.0) g/dL Globulin 3.6 (1.7-4.1) g/dL Albumin/Globulin Ratio 1.3 (1.0-2.8) Lipase 60 (23-300) U/L TSH (0.47-4.68) uIU/mL Free T4 (0.78-2.19) ng/dL 05/25/20 05/25/20 05/25/20 Range/Units 13:20 13:20 16:20 WBC (4.5-11.0) X10^3/uL RBC (4.0-5.2) X10^6/uL Hgb (12.0-16.0) g/dL Hct (36-46) % MCV (80-100) fL MCH (26-34) PG MCHC (30-36) % RDW (11.6-14.8) % Plt Count (150-400) X10^3/uL Neut % (Auto) (50-75) % Lymph % (Auto) (25-40) % Williams % (Auto) (3-14) % Eos % (Auto) (2-4) % Baso % (Auto) (0-2) % Neut # (Auto) (2299-9965) /uL Lymph # (Auto) (3262-8213) /uL Williams # (Auto) (0-900) /uL Eos # (Auto) (0-450) /uL Baso # (Auto) (0-100) /uL PT (10.1-12.7) SECONDS INR (0.9-1.3) APTT (26.4-36.2) SECONDS Sodium (137-145) mmol/L Potassium (3.4-5.1) mmol/L Chloride (98-107) mmol/L Carbon Dioxide (22-32) mmol/L BUN (7-17) mg/dL Creatinine (0.52-1.04) mg/dL Estimated GFR (>60) mL/min BUN/Creatinine Ratio (6-22) Glucose (80-110) mg/dL Calcium (8.4-10.2) mg/dL Magnesium 1.8 (1.6-2.3) mg/dL Total Bilirubin (0.2-1.3) mg/dL AST (14-36) IU/L ALT (<35) IU/L Alkaline Phosphatase (38-126) U/L Total Creatine Kinase (30-135) U/L CK-MB (CK-2) CK-MB (CK-2) Rel Index Troponin I < 0.012 (0.01-0.034) ng/mL Total Protein (6.3-8.2) g/dL Albumin (3.5-5.0) g/dL Globulin (1.7-4.1) g/dL Albumin/Globulin Ratio (1.0-2.8) Lipase (23-300) U/L TSH 0.374 L (0.47-4.68) uIU/mL Free T4 1.65 (0.78-2.19) ng/dL ECG Data Attestation: I personally reviewed and interpreted this ECG as follows: Prior ECG tracings: available for review Interpretation: sinus rhythm rate at 76. MT interval 172, QRS duration 92, QT/QTC 389/419 Left dominant axis. No acute ST changes EKG on 10/05/2018 read as afib rate at 77 MDM Narrative Medical decision making narrative: This is a 69 year female who presents to ED with concerns for arrhythmia, AFib. Patient had mild symptoms of dizziness, dyspnea, tingling to fingers and nausea that lasted for hour and half without exertion while riding a car that happened about 4-1/2 hour ago before coming into ED. physical exam was unremarkable. EKG sinus rhythm rate at 76. Labs were assuring. No indications of anemia with H&H 14.6/44.3. Normal coags of PT of 11.8, INR of 1.0, APTT of 34. Indications for mild dehydration with increased BUN of 23, BUN creatinine ratio of 31.5, mildly elevated glucose of 119 and sodium of 136. Cardiac enzymes were negative. TSH today to 0.347 and her last 6 months TSH this has been her baseline with normal FT4 of 1.65. Repeated 2nd cardiac enzyme was again negative. Read as right basilar focal opacity but clinically is not consistent with x-ray findings. Patient does not have short of breath, cough, fever. It is unclear to explain today's patient's symptom. Patient advised to follow-up with PCP to discuss today's findings including TSH and return precautions discussed. Patient is cleared for surgery next week with normal EKG, cardiac enzymes, normal coag, with stable H&H. Return precautions were discussed with patient and she verbalized understanding in agreement with the treatment plan. <Zulma Spence, DO - Last Filed: 05/28/20 13:47> Lab Data Labs: Lab Results 05/25/20 05/25/20 05/25/20 Range/Units 13:20 13:20 13:20 WBC 8.5 (4.5-11.0) X10^3/uL RBC 4.64 (4.0-5.2) X10^6/uL Hgb 14.6 (12.0-16.0) g/dL Hct 44.3 (36-46) % MCV 95.5 (80-100) fL MCH 31.5 (26-34) PG MCHC 33.0 (30-36) % RDW 13.7 (11.6-14.8) % Plt Count 277 (150-400) X10^3/uL Neut % (Auto) 68.9 (50-75) % Lymph % (Auto) 24.8 L (25-40) % Williams % (Auto) 4.9 (3-14) % Eos % (Auto) 0.8 L (2-4) % Baso % (Auto) 0.6 (0-2) % Neut # (Auto) 5800 (0431-5294) /uL Lymph # (Auto) 2100 (4355-8412) /uL Williams # (Auto) 400 (0-900) /uL Eos # (Auto) 100 (0-450) /uL Baso # (Auto) 100 (0-100) /uL PT 11.8 (10.1-12.7) SECONDS INR 1.0 (0.9-1.3) APTT 34 D (26.4-36.2) SECONDS Sodium 136 L (137-145) mmol/L Potassium 4.8 (3.4-5.1) mmol/L Chloride 100 (98-107) mmol/L Carbon Dioxide 30 (22-32) mmol/L BUN 23 H (7-17) mg/dL Creatinine 0.73 (0.52-1.04) mg/dL Estimated GFR > 60.0 (>60) mL/min BUN/Creatinine Ratio 31.5 H (6-22) Glucose 119 H (80-110) mg/dL Calcium 9.7 (8.4-10.2) mg/dL Magnesium (1.6-2.3) mg/dL Total Bilirubin 0.5 (0.2-1.3) mg/dL AST 31 (14-36) IU/L ALT 22 (<35) IU/L Alkaline Phosphatase 63 (38-126) U/L Total Creatine Kinase 63 (30-135) U/L CK-MB (CK-2) TNP CK-MB (CK-2) Rel Index TNP Troponin I < 0.012 (0.01-0.034) ng/mL Total Protein 8.1 (6.3-8.2) g/dL Albumin 4.5 (3.5-5.0) g/dL Globulin 3.6 (1.7-4.1) g/dL Albumin/Globulin Ratio 1.3 (1.0-2.8) Lipase 60 (23-300) U/L TSH (0.47-4.68) uIU/mL Free T4 (0.78-2.19) ng/dL 05/25/20 05/25/20 05/25/20 Range/Units 13:20 13:20 16:20 WBC (4.5-11.0) X10^3/uL RBC (4.0-5.2) X10^6/uL Hgb (12.0-16.0) g/dL Hct (36-46) % MCV (80-100) fL MCH (26-34) PG MCHC (30-36) % RDW (11.6-14.8) % Plt Count (150-400) X10^3/uL Neut % (Auto) (50-75) % Lymph % (Auto) (25-40) % Williams % (Auto) (3-14) % Eos % (Auto) (2-4) % Baso % (Auto) (0-2) % Neut # (Auto) (3600-9899) /uL Lymph # (Auto) (6269-2522) /uL Williams # (Auto) (0-900) /uL Eos # (Auto) (0-450) /uL Baso # (Auto) (0-100) /uL PT (10.1-12.7) SECONDS INR (0.9-1.3) APTT (26.4-36.2) SECONDS Sodium (137-145) mmol/L Potassium (3.4-5.1) mmol/L Chloride (98-107) mmol/L Carbon Dioxide (22-32) mmol/L BUN (7-17) mg/dL Creatinine (0.52-1.04) mg/dL Estimated GFR (>60) mL/min BUN/Creatinine Ratio (6-22) Glucose (80-110) mg/dL Calcium (8.4-10.2) mg/dL Magnesium 1.8 (1.6-2.3) mg/dL Total Bilirubin (0.2-1.3) mg/dL AST (14-36) IU/L ALT (<35) IU/L Alkaline Phosphatase (38-126) U/L Total Creatine Kinase (30-135) U/L CK-MB (CK-2) CK-MB (CK-2) Rel Index Troponin I < 0.012 (0.01-0.034) ng/mL Total Protein (6.3-8.2) g/dL Albumin (3.5-5.0) g/dL Globulin (1.7-4.1) g/dL Albumin/Globulin Ratio (1.0-2.8) Lipase (23-300) U/L TSH 0.374 L (0.47-4.68) uIU/mL Free T4 1.65 (0.78-2.19) ng/dL Discharge Plan Departure Patient Disposition: Home Clinical Impression: Atypical chest pain Instructions: DI for Atypical Chest Pain Activity Restrictions/Additional Instructions: You have been study for atypical chest pain. Your EKG was sinus rhythm. Two sets of cardiac enzymes were negative. No signs of anemia. Mild indications for dehydration. TSH is very mildly decreased but free T4 is within normal limit.]. What to do: *Take your medications as directed. *Follow up with your primary care provider in 2-3 days, call for an appointment. Let them know you were seen in the ED and that we asked you to be seen in follow up. A share the information with Dr. Shaffer at [place] with today's findings. Good luck with her surgery. *Return to ED if you have any new, worsening, or concerning symptoms, such as [chest pain, dyspnea, fever, unable to tolerate fluids, or any acute concerns]. Prescriptions: No Action levothyroxine 125 mcg tablet 125 mcg PO DAILY Qty: 90 RF: 3 (DME) Resmed Airsense 10 CPAP Qty: 1 RF: 0 Referrals: Chaz Amezcua MD [Primary Care Provider] - <Zulma Spence DO - Last Filed: 05/28/20 13:47> Cosign ED Attending Coskaelature Attestation: I was immediately available in the department for consultation. Documentation has been reviewed. I agree with assessment and plan.
--- NOTE | 2020-05-25 13:25 | DI.RAD.S_ITS ---
PROCEDURE: XR CHEST 1V INDICATIONS: chest pain TECHNIQUE: One view of the chest was acquired. COMPARISON: [facility], , CHEST 2 VIEW, 06/28/2007, 22:54. FINDINGS: Surgical changes and devices: None. Lungs and pleura: Focal opacity noted in the medial aspect of the right lung base. No pleural effusions or pneumothorax. Mediastinum: Mediastinal contours appear normal. Heart size is normal. Bones and chest wall: No suspicious bony lesions. Overlying soft tissues appear unremarkable. IMPRESSION: Right basilar focal opacity which could represent atelectasis or pneumonia. Dictated by: Naya King MD, PhD on 05/25/2020 at 12:53 Approved by: Naya King MD, PhD on 05/25/2020 at 12:54
[2020-05-25 13:42] LABS: Add Manual Diff / Slide Review NO; Basophils Absolute Auto 100 /uL (0-100); Basophils Percent Auto 0.6 % (0-2); Eosinophils Absolute Auto 100 /uL (0-450); Eosinophils Percent Auto 0.8 % (2-4); Hematocrit 44.3 % (36-46); Hemoglobin 14.6 g/dL (12.0-16.0); Lymphocytes Absolute Auto 2100 /uL (1100-4500); Lymphocytes Percent Auto 24.8 % (25-40); Mean Corpuscular Hemoglobin 31.5 PG (26-34); Mean Corpuscular Volume 95.5 fL (80-100); Monocytes Absolute Auto 400 /uL (0-900); Monocytes Percent Auto 4.9 % (3-14); Neutrophils Absolute Auto 5800 /uL (1500-7000); Neutrophils Percent Auto 68.9 % (50-75); Platelet Count 277 X10^3/uL (150-400); Red Blood Cell Count 4.64 X10^6/uL (4.0-5.2); Red Cell Distribution Width 13.7 % (11.6-14.8); White Blood Cell Count 8.5 X10^3/uL (4.5-11.0)
[2020-05-25 13:48] LABS: Alanine Aminotransferase 22 IU/L (<35); Albumin 4.5 g/dL (3.5-5.0); Albumin Globulin Ratio 1.3 (1.0-2.8); Alkaline Phosphatase 63 U/L (38-126); Aspartate Aminotransferase 31 IU/L (14-36); BUN Creatinine Ratio 31.5 (6-22); Bilirubin Total 0.5 mg/dL (0.2-1.3); Blood Urea Nitrogen 23 mg/dL (7-17); Calcium 9.7 mg/dL (8.4-10.2); Carbon Dioxide 30 mmol/L (22-32); Chloride 100 mmol/L (98-107); Creatine Kinase 63 U/L (30-135); Estimated Glomerular Filt Rate > 60.0 mL/min (>60); Globulin 3.6 g/dL (1.7-4.1); Glucose 119 mg/dL (80-110); HEMOLYSIS < 15 (0-50); Lipase 60 U/L (23-300); Potassium 4.8 mmol/L (3.4-5.1); Sodium 136 mmol/L (137-145); Total Protein 8.1 g/dL (6.3-8.2)
[2020-05-25 13:59] LABS: Troponin I < 0.012 ng/mL (0.01-0.034)
[2020-05-25 14:11] LABS: Prothrombin Time 11.8 SECONDS (10.1-12.7)
[2020-05-25 14:14] LABS: PTT Partial Thromboplastin Tim 34 SECONDS (26.4-36.2)
[2020-05-25] MEDS: SODIUM CHLORIDE 0.9% 1,000 ML 125 ML IV (14:35)
[2020-05-25 14:44] LABS: Magnesium 1.8 mg/dL (1.6-2.3)
[2020-05-25 15:01] LABS: Free T4, Direct Thyroxine 1.65 ng/dL (0.78-2.19)
[2020-05-25 15:14] LABS: Thyroid Stimulating Hormone 0.374 uIU/mL (0.47-4.68)
[2020-05-25 16:51] LABS: Troponin I < 0.012 ng/mL (0.01-0.034)
== END 2020-05-25 17:21 | disposition home or self-care (01) ==
PROVIDERS: Emergency Provider Nurse Practitioner Family; PCP Family Medicine
DX: R07.89 Other chest pain (principal); I48.91 Unspecified atrial fibrillation; E03.9 Hypothyroidism, unspecified; I10 Essential (primary) hypertension; E78.5 Hyperlipidemia, unspecified
CPT/HCPCS: 36415; 71045; 80053; 82550; 83690; 83735; 84439; 84443; 84484; 85025; 85610; 85730; 93005; 96360; 96361; 99283; 99284

== ENCOUNTER → 2020-05-26 13:38 | Outpatient (CLI) | payer OTHER, MEDICARE, SELFPAY ==
--- NOTE | 2020-05-26 13:40 | DI.MG.S_ITS ---
BILATERAL DIGITAL DIAGNOSTIC MAMMOGRAM 3D/2D: 05/26/2020 CLINICAL: Right breast rash, redness and itching. Comparison is made to exams dated: 11/12/2018 mammogram and 12/25/2003 mammogram - [facility]. There are scattered fibroglandular elements in both breasts. No significant masses, calcifications, or other findings are seen in either breast. There has been no significant interval change from the prior study. IMPRESSION: NEGATIVE There is no mammographic evidence of malignancy. Clinical management of the nipple erythema and pruritus is recommended. Annual screening mammogram is also recommended. This exam was interpreted at Station ID: [id number]. NOTE: For mammograms, a report in lay terms will be sent to the patient. Approximately 15% of breast malignancies will not be visualized mammographically. In the management of a palpable breast mass, a negative mammogram must not discourage biopsy of a clinically suspicious lesion. Electronically Signed By: Chaz Phelps M.D. jr/:05/26/2020 14:45:30 letter sent: Normal Exam ACR BI-RADS Category 1: Negative [id number]
== END ==
PROVIDERS: PCP Family Medicine; Referring Provider Family Medicine; Visit Provider Family Medicine
DX: N64.59 Other signs and symptoms in breast (principal); L29.9 Pruritus, unspecified; R21 Rash and other nonspecific skin eruption
CPT/HCPCS: 77066; G0279

== ENCOUNTER → 2020-06-07 15:20 | Outpatient (CLI) | payer OTHER, MEDICARE, SELFPAY ==
[2020-06-07 18:05] LABS: COVID19 -Nasal RAPID Negative (Negative)
== END ==
PROVIDERS: PCP Family Medicine; Visit Provider Physician Assistant
DX: Z01.812 Encounter for preprocedural laboratory examination (principal); Z20.822 Contact with and (suspected) exposure to COVID-19
CPT/HCPCS: 87635

== ENCOUNTER → 2020-07-29 08:52 | Outpatient (CLI) | payer OTHER, MEDICARE, SELFPAY ==
[2020-07-29 09:48] LABS: Add Manual Diff / Slide Review NO; Basophils Absolute Auto 0 /uL (0-100); Basophils Percent Auto 0.9 % (0-2); Eosinophils Absolute Auto 200 /uL (0-450); Hematocrit 42.9 % (36-46); Hemoglobin 14.6 g/dL (12.0-16.0); Lymphocytes Absolute Auto 2400 /uL (1100-4500); Lymphocytes Percent Auto 45.3 % (25-40); Mean Corpuscular Hemoglobin 32.1 PG (26-34); Mean Corpuscular Volume 94.6 fL (80-100); Monocytes Absolute Auto 500 /uL (0-900); Monocytes Percent Auto 8.8 % (3-14); Neutrophils Absolute Auto 2200 /uL (1500-7000); Platelet Count 254 X10^3/uL (150-400); Red Blood Cell Count 4.54 X10^6/uL (4.0-5.2); Red Cell Distribution Width 13.8 % (11.6-14.8); White Blood Cell Count 5.3 X10^3/uL (4.5-11.0)
[2020-07-29 10:09] LABS: Alanine Aminotransferase 27 IU/L (<35); Albumin 4.3 g/dL (3.5-5.0); Albumin Globulin Ratio 1.6 (1.0-2.8); Alkaline Phosphatase 65 U/L (38-126); Aspartate Aminotransferase 31 IU/L (14-36); BUN Creatinine Ratio 23.1 (6-22); Bilirubin Total 0.5 mg/dL (0.2-1.3); Blood Urea Nitrogen 18 mg/dL (7-17); Calcium 9.8 mg/dL (8.4-10.2); Carbon Dioxide 29 mmol/L (22-32); Chloride 103 mmol/L (98-107); Cholesterol 301 mg/dL (140-199); Estimated Glomerular Filt Rate > 60.0 mL/min (>60); Globulin 2.7 g/dL (1.7-4.1); Glucose 112 mg/dL (80-110); HDL Cholesterol 60 mg/dL (40-60); HEMOLYSIS < 15 (0-50); LDL Cholesterol Calculated 211 mg/dL (<100); Potassium 4.7 mmol/L (3.4-5.1); Sodium 139 mmol/L (137-145); Triglycerides 151 mg/dL (35-150)
[2020-07-29 10:13] LABS: Free T3, Triiodothyronine Free 3.85 pg/mL (2.77-5.27)
[2020-07-29 10:27] LABS: Estradiol, Total 32.8 pg/mL; Thyroid Stimulating Hormone 0.502 uIU/mL (0.47-4.68)
[2020-07-29 10:34] LABS: Testosterone 39.5 ng/dL (5.71-77.0)
[2020-07-29 10:50] LABS: Vitamin B12 637 pg/mL (239-931)
[2020-07-30 06:18] LABS: Thyroid Peroxidase Antibodies 85 IU/mL (0-34)
[2020-07-30 18:36] LABS: Anti Thyroglobulin Antibody 2.5 IU/mL (0.0-0.9)
== END ==
PROVIDERS: PCP Family Medicine; Referring Provider Nurse Practitioner Family; Visit Provider Nurse Practitioner Family
DX: E03.9 Hypothyroidism, unspecified (principal); R53.83 Other fatigue; N95.8 Other specified menopausal and perimenopausal disorders; I10 Essential (primary) hypertension
CPT/HCPCS: 80053; 80061; 82607; 82670; 83001; 84403; 84436; 84443; 84481; 85025; 86376; 86800

== ENCOUNTER → 2020-09-17 08:58 | Outpatient (CLI) | payer OTHER, MEDICARE, SELFPAY | PROVIDERS: PCP Family Medicine; Referring Provider Nurse Practitioner Family; Visit Provider Nurse Practitioner Family | DX: N95.1 Menopausal and female climacteric states (principal) | CPT/HCPCS: 36415; 82670; 83001; 84403 ==